=== PATIENT | female | born 1970 | race Asian ===

== ENCOUNTER 2018-10-28 10:12 | Outpatient (CLI) | payer OTHER ==
--- NOTE | 2018-10-28 10:55 | ULT ---
THYROID ULTRASOUND: Date: 10/28/18 HISTORY: Left lobe thyroid nodule. FINDINGS: Real-time imaging of the right and left lobes of the gland were performed. The right lobe measures 2. 2 x 1.8 x 5.9 cm. The left lobe measures 1.5 x 2.0 x 5.7 cm. There are some tiny complex cystic nodul es within the right lobe 2-3 mm in size. On the left side, there is a predominantly cystic nodule hardy suring 1.1 cm in size. IMPRESSION: Small, predominantly cystic, thyroid nodules. POS: [facility]
== END 2018-10-28 10:13 | disposition home or self-care (01) ==
LOC: BICULT 10:12
PROVIDERS: ATTEND Otolaryngology Plastic Surgery within the Head & Neck
DX: E04.2 Nontoxic multinodular goiter (principal)
CPT/HCPCS: 76536

== ENCOUNTER 2020-07-25 12:13 | Outpatient (CLI) | payer BC | END 2020-07-25 12:14 | disposition home or self-care (01) | LOC: BICMAMMO 12:13 | PROVIDERS: ATTEND Physician Assistant | DX: Z12.31 Encounter for screening mammogram for malignant neoplasm of breast (principal) | CPT/HCPCS: 77063; 77067 ==

== ENCOUNTER 2020-08-08 13:12 | Outpatient (CLI) | payer BC ==
[~2020-08-08 13:12] MED LIST: Magnevist 469MG/ML 20 ML VIAL ONE
== END 2020-08-08 13:13 | disposition home or self-care (01) ==
LOC: BICMRI 13:12
PROVIDERS: ATTEND Physician Assistant
DX: R42 Dizziness and giddiness (principal); R26.81 Unsteadiness on feet; R51.9 Headache, unspecified
CPT/HCPCS: 70553; A9579

== ENCOUNTER 2021-04-02 13:20 | Outpatient (CLI) | payer BC | END 2021-04-02 13:21 | disposition home or self-care (01) | LOC: BICMRI 13:20 | PROVIDERS: ATTEND Family Medicine | DX: M79.2 Neuralgia and neuritis, unspecified (principal); M50.322 Other cervical disc degeneration at C5-C6 level; M25.78 Osteophyte, vertebrae; M48.02 Spinal stenosis, cervical region | CPT/HCPCS: 72141 ==

== ENCOUNTER 2021-09-10 11:13 | Outpatient (CLI) | payer BC | END 2021-09-10 11:14 | disposition home or self-care (01) | LOC: BICMAMMO 11:13 | PROVIDERS: ATTEND Family Medicine | DX: Z12.31 Encounter for screening mammogram for malignant neoplasm of breast (principal) | CPT/HCPCS: 77063; 77067 ==

== ENCOUNTER 2023-03-13 11:40 | Outpatient (CLI) | payer BC | END 2023-03-13 11:41 | disposition home or self-care (01) | LOC: BICMAMMO 11:40 | PROVIDERS: ATTEND Family Medicine | DX: Z12.31 Encounter for screening mammogram for malignant neoplasm of breast (principal); Z80.3 Family history of malignant neoplasm of breast | CPT/HCPCS: 77063; 77067 ==

== ENCOUNTER 2023-11-13 17:47 | Outpatient (CLI) | payer BC | END 2023-11-13 17:48 | disposition home or self-care (01) | LOC: SCSRAD 17:47 | PROVIDERS: ATTEND Family Medicine | DX: M79.671 Pain in right foot (principal); G89.29 Other chronic pain; S92.344A Nondisplaced fracture of fourth metatarsal bone, right foot, initial encounter for closed fracture ==